=== PATIENT | male | born 2000 | race Caucasian/White ===

== ENCOUNTER 2020-11-23 19:36 | Emergency (ER) | payer BC ==
[~2020-11-23] VITALS: Ht 172.7 cm; Wt 84.1 kg
[2020-11-23 19:38] VITALS: BP 130/81; TEMP 97.7
[2020-11-23 20:56] VITALS: PULSE 84
== END 2020-11-23 20:57 | disposition home or self-care (01) ==
LOC: COL.ER 19:36
DX: S10.15XA Superficial foreign body of throat, initial encounter (principal); W45.8XXA Other foreign body or object entering through skin, initial encounter